=== PATIENT | female | born 1945 | race Caucasian/White ===

== ENCOUNTER → 2016-07-20 | Outpatient (REF) | payer MEDICARE, OTHER | LOC: M LAB REF 16:39 | PROVIDERS: ATTEND Internal Medicine Medical Oncology | DX: C50.911 Malignant neoplasm of unspecified site of right female breast (principal); E07.9 Disorder of thyroid, unspecified ==

== ENCOUNTER 2017-02-06 14:21 | Emergency (ER) | payer MEDICARE, OTHER ==
[~2017-02-06] VITALS: Ht 160 cm; Wt 100.0 kg
[2017-02-06] MEDS ORDERED: SPIR25TA2 (14:31)
[2017-02-06] MEDS ORDERED: ATEN50TA2 (14:31)
[2017-02-06] MEDS ORDERED: XARE20TA (14:31)
[2017-02-06] MEDS ORDERED: VERA24TASA (14:31)
[2017-02-06] MEDS ORDERED: NS 1,000 ML IV ONE (15:45)
[2017-02-06 16:10] LABS: BASO # 0.1 10^3/uL (0.0-0.2); BASO % 0.6 % (0.0-1.0); EOS # 0.1 10^3/uL (0.0-0.50); EOS % 0.5 % (0.0-3.0); IMMATURE GRANULOCYTE % 0.2 % (0-0); LYMPH # 2.8 10^3/uL (1.5-4.5); LYMPH % 26.1 % (24.0-44.0); MEAN CORPUSCULAR HEMOGLOBIN 31.1 pg (27.0-33.0); MEAN CORPUSCULAR HGB CONC 32.4 g/dl (32.0-36.5); MONO # 0.8 10^3/uL (0.0-0.8); MONO % 7.7 % (0.0-5.0); NEUTROPHILS # 7.1 10^3/uL (1.8-7.7); NEUTROPHILS % 64.9 % (36.0-66.0); PLATELET COUNT, AUTOMATED 293 10^3/uL (150-450); RED CELL DISTRIBUTION WIDTH 12.7 % (11.5-14.5); WHITE BLOOD COUNT 10.9 10^3/uL (4.0-10.0)
[2017-02-06 16:19] LABS: INR 2.54
[2017-02-06 16:32] LABS: ALBUMIN 3.3 GM/DL (3.2-5.2); ALBUMIN/GLOBULIN RATIO 0.7 (1.00-1.93); BILIRUBIN,DIRECT 0.1 MG/DL (0.0-0.2); BILIRUBIN,TOTAL 0.5 MG/DL (0.2-1.0); CALCIUM LEVEL 8.9 MG/DL (8.8-10.2); CREATININE FOR GFR 0.99 MG/DL (0.55-1.02); GLOMERULAR FILTRATION RATE 58.9 (>39); POTASSIUM SERUM 3.6 MEQ/L (3.5-5.1)
[2017-02-06] MEDS ORDERED: CIPR-249 PO (17:08)
[2017-02-06] MEDS ORDERED: CIPROFLOXACIN 500 MG TAB PO ONE (17:15)
[2017-02-06 17:19] VITALS: BP 148/67
--- NOTE | 2017-02-08 06:24 | REP ---
CT ABDOMEN AND PELVIS WITHOUT CONTRAST: HISTORY: Bilateral flank pain. COMPARISON: 02/03/2006. Calcifications are present in the gallbladder consistent with cholelithiasis. A 10 mm calcification is present in the right renal pelvis. There is no hydronephrosis. A 1.2 cm mass is present in the left adrenal gland consistent with an adenoma. The liver, pancreas, spleen, right adrenal gland and left kidney are normal in appearance. There is no mass, adenopathy or free fluid. Diverticula are present in the descending colon. A 1.3 cm ventral abdominal hernia containing fat is present. The visualized lungs are clear. CT PELVIS: The urinary bladder and uterus are normal in appearance. Diverticula are present in the descending and sigmoid colon. Degenerative change is present in the spine. IMPRESSION: 1. Cholelithiasis. 2. There is a 10 mm calcification in the right renal pelvis. There is no hydronephrosis. 3. 1.2 cm left adrenal mass consistent with a adenoma. 4. Diverticulosis. 5. 1.3 cm ventral abdominal hernia. Signed by Singh Thorne MD 02/08/2017 10:00 A
== END 2017-02-06 17:31 | disposition home or self-care (01) ==
LOC: M ED 14:21
DX: N10 Acute pyelonephritis (principal); N20.0 Calculus of kidney; I10 Essential (primary) hypertension; Z79.899 Other long term (current) drug therapy; Z91.040 Latex allergy status; Z87.442 Personal history of urinary calculi; Z98.890 Other specified postprocedural states

== ENCOUNTER 2017-06-07 07:55 | Inpatient (IN) | payer MEDICARE, OTHER ==
[2017-06-07] MEDS: LR 1,000 ML IV ×2 (08:00→16:14)
[2017-06-07] MEDS ORDERED: PROPOFOL 200 MG/20 ML VIAL As Ordered ×4 (09:47→12:21)
[2017-06-07] MEDS ORDERED: fentaNYL 100 MCG/2 ML INJECTION (J3010) As Ordered ×3 (10:31→14:52)
[2017-06-07] MEDS ORDERED: MIDAZOLAM INJ 2 MG/2 ML VIAL (J2250) As Ordered (10:39)
[2017-06-07 11:20] LABS: HEMATOCRIT 39.8 % (36.0-47.0); HEMOGLOBIN 13.1 g/dl (12.0-16.0); MEAN CORPUSCULAR HEMOGLOBIN 31.5 pg (27.0-33.0); MEAN CORPUSCULAR HGB CONC 32.9 g/dl (32.0-36.5); MEAN CORPUSCULAR VOLUME 95.7 fl (80.0-96.0); PLATELET COUNT, AUTOMATED 244 10^3/uL (150-450); RED BLOOD COUNT 4.16 10^6/uL (4.00-5.40); RED CELL DISTRIBUTION WIDTH 13.1 % (11.5-14.5); WHITE BLOOD COUNT 8.3 10^3/uL (4.0-10.0)
[2017-06-07] MEDS ORDERED: ePHEDrine SULFATE 25 MG/5 ML(5MG/ML) SYRINGE As Ordered (11:23)
[2017-06-07] MEDS ORDERED: PHENYLephrine HCL 500 MCG/5 ML (100MCG/ML) SYRINGE (J2370) As Ordered (11:23)
[2017-06-07] MEDS: ZOSYN 3.375 GM VIAL (J2543) As Ordered (11:24)
[2017-06-07] MEDS: BUPIVACAINE HCL 0.25% 30 ML VIAL As Ordered (11:40)
[2017-06-07 11:47] LABS: ANION GAP 7 MEQ/L (8-16); BLOOD UREA NITROGEN 12 MG/DL (7-18); CALCIUM LEVEL 8.5 MG/DL (8.8-10.2); CARBON DIOXIDE LEVEL 28 MEQ/L (21-32); CHLORIDE LEVEL 107 MEQ/L (98-107); CREATININE FOR GFR 0.88 MG/DL (0.55-1.30); GLOMERULAR FILTRATION RATE > 60.0 (>39); GLUCOSE, FASTING 93 MG/DL (70-100); POTASSIUM SERUM 4.2 MEQ/L (3.5-5.1); SODIUM LEVEL 142 MEQ/L (136-145)
[2017-06-07] MEDS ORDERED: MORPHINE 10 MG/ML 1ML VIAL (J2270) As Ordered (12:04)
[2017-06-07] MEDS ORDERED: ROCURONIUM BROMIDE 50 MG/5 ML VIAL As Ordered ×2 (12:21→12:43)
[2017-06-07] MEDS ORDERED: LIDOCAINE 2% INJ 100 MG/5 ML SDV (FOR ANES.) As Ordered (12:21)
[2017-06-07] MEDS ORDERED: dexameTHASONE 4 MG/ML 1ML VIAL (J1100) As Ordered (12:21)
[2017-06-07] MEDS ORDERED: ONDANSETRON 4MG/2ML VIAL (J2405) As Ordered ×2 (12:21→14:46)
[2017-06-07] MEDS ORDERED: NEOSTIGMINE 10 MG/10 ML VIAL (J2710) As Ordered (14:48)
[2017-06-07] MEDS ORDERED: GLYCOPYRROLATE INJ 0.2 MG/ML 2 ML VIAL As Ordered ×2 (14:49)
[2017-06-07] MEDS ORDERED: KETOROLAC 30 MG/ML VIAL (J1885) As Ordered (16:00)
[2017-06-07] MEDS ORDERED: HYDROmorphone HCL 1 MG/ML SYRINGE (J1170) As Ordered (16:03)
[2017-06-07] MEDS: KETOROLAC 30 MG/ML VIAL (J1885) IV (16:10)
[2017-06-07] MEDS: HYDROmorphone HCL 1 MG/ML SYRINGE (J1170) IV ×3 (16:13→16:24)
[2017-06-07] MEDS ORDERED: METOCLOPRAMIDE INJ 10MG/2ML VIAL (J2765) IV (16:15)
[2017-06-07] MEDS ORDERED: LR 1,000 ML IV (16:15)
[2017-06-07] MEDS ORDERED: ONDANSETRON 4MG/2ML VIAL (J2405) IV ×2 (16:15)
[2017-06-07] MEDS ORDERED: MORPHINE 4 MG/ML 1ML VIAL (J2270) IV (16:15)
[2017-06-07] MEDS ORDERED: ACETAMINOPHEN TAB 650MG DOSE (2X325MG) PO (16:15)
[2017-06-07] MEDS ORDERED: fentaNYL 100 MCG/2 ML INJECTION (J3010) IV (16:15)
[2017-06-07] MEDS ORDERED: PIPERACILLIN/TAZOBACTAM SOD 3.375 GM in APPROPRIATE DILUENT 1 EA IV (17:00)
[2017-06-07] MEDS: PIPERACILLIN/TAZOBACTAM SOD 3.375 GM in APPROPRIATE DILUENT 1 EA IV ×2 (19:33→23:37)
[2017-06-08] MEDS: PIPERACILLIN/TAZOBACTAM SOD 3.375 GM in APPROPRIATE DILUENT 1 EA IV ×4 (05:15→23:44)
[2017-06-08] MEDS: LR 1,000 ML IV ×4 (05:16→19:40)
[2017-06-08] MEDS: KETOROLAC 30 MG/ML VIAL (J1885) IV ×3 (05:52→20:01)
[2017-06-08 06:36] LABS: BASO % 0.1 % (0.0-1.0); HEMATOCRIT 35.3 % (36.0-47.0); HEMOGLOBIN 11.6 g/dl (12.0-16.0); IMMATURE GRANULOCYTE % 0.5 % (0-3.0); LYMPH # 1.1 10^3/uL (1.5-4.5); LYMPH % 5.3 % (24.0-44.0); MEAN CORPUSCULAR HEMOGLOBIN 31.2 pg (27.0-33.0); MEAN CORPUSCULAR HGB CONC 32.9 g/dl (32.0-36.5); MEAN CORPUSCULAR VOLUME 94.9 fl (80.0-96.0); MONO # 1.3 10^3/uL (0.0-0.8); MONO % 6.6 % (0.0-5.0); NEUTROPHILS # 17.5 10^3/uL (1.8-7.7); NEUTROPHILS % 87.5 % (36.0-66.0); PLATELET COUNT, AUTOMATED 222 10^3/uL (150-450); RED BLOOD COUNT 3.72 10^6/uL (4.00-5.40); RED CELL DISTRIBUTION WIDTH 13.2 % (11.5-14.5)
[2017-06-08 07:03] LABS: ALBUMIN 2.4 GM/DL (3.2-5.2); ALBUMIN/GLOBULIN RATIO 0.62 (1.00-1.93); ALKALINE PHOSPHATASE 53 U/L (45-117); ALT/SGPT 10 U/L (12-78); ANION GAP 6 MEQ/L (8-16); AST/SGOT 15 U/L (7-37); BILIRUBIN,TOTAL 0.8 MG/DL (0.2-1.0); BLOOD UREA NITROGEN 17 MG/DL (7-18); CALCIUM LEVEL 8.1 MG/DL (8.8-10.2); CARBON DIOXIDE LEVEL 28 MEQ/L (21-32); CHLORIDE LEVEL 107 MEQ/L (98-107); CREATININE FOR GFR 1.16 MG/DL (0.55-1.30); GLUCOSE, FASTING 143 MG/DL (70-100); POTASSIUM SERUM 4.1 MEQ/L (3.5-5.1); SODIUM LEVEL 141 MEQ/L (136-145); TOTAL PROTEIN 6.3 GM/DL (6.4-8.2)
[2017-06-08] MEDS: ATENOLOL 50 MG TAB PO (09:07)
[2017-06-08] MEDS: SPIRONOLACTONE 25 MG TAB PO (09:07)
[2017-06-08] MEDS: VERAPAMIL 120 MG SR TAB PO (09:07)
[2017-06-08] MEDS: ALVIMOPAN 12 MG CAPSULE (ENTEREG) PO ×2 (11:21→20:00)
[2017-06-08] MEDS: SPIRONOLACTONE 12.5MG PER 1/2 TABLET PO (11:21)
[2017-06-08] MEDS: RIVAROXABAN 20 MG TAB (XARELTO) PO (21:35)
[2017-06-08] MEDS: CALCIUM CARBONATE 500 MG CHEW U/D PO (21:35)
[2017-06-09] MEDS: LR 1,000 ML IV (05:14)
[2017-06-09] MEDS: PIPERACILLIN/TAZOBACTAM SOD 3.375 GM in APPROPRIATE DILUENT 1 EA IV ×4 (05:14→23:35)
[2017-06-09 06:31] LABS: BASO % 0.2 % (0.0-1.0); EOS % 0.3 % (0.0-3.0); HEMATOCRIT 31.2 % (36.0-47.0); HEMOGLOBIN 10.3 g/dl (12.0-16.0); IMMATURE GRANULOCYTE % 0.5 % (0-3.0); LYMPH # 1.2 10^3/uL (1.5-4.5); LYMPH % 7.7 % (24.0-44.0); MEAN CORPUSCULAR HEMOGLOBIN 31.1 pg (27.0-33.0); MEAN CORPUSCULAR VOLUME 94.3 fl (80.0-96.0); MONO # 0.8 10^3/uL (0.0-0.8); MONO % 5.2 % (0.0-5.0); NEUTROPHILS # 12.8 10^3/uL (1.8-7.7); NEUTROPHILS % 86.1 % (36.0-66.0); PLATELET COUNT, AUTOMATED 183 10^3/uL (150-450); RED BLOOD COUNT 3.31 10^6/uL (4.00-5.40); WHITE BLOOD COUNT 14.9 10^3/uL (4.0-10.0)
[2017-06-09 06:49] LABS: ANION GAP 7 MEQ/L (8-16); BLOOD UREA NITROGEN 14 MG/DL (7-18); CALCIUM LEVEL 8.3 MG/DL (8.8-10.2); CARBON DIOXIDE LEVEL 27 MEQ/L (21-32); CHLORIDE LEVEL 108 MEQ/L (98-107); CREATININE FOR GFR 0.96 MG/DL (0.55-1.30); GLOMERULAR FILTRATION RATE > 60.0 (>39); GLUCOSE, FASTING 94 MG/DL (70-100); POTASSIUM SERUM 3.7 MEQ/L (3.5-5.1); SODIUM LEVEL 142 MEQ/L (136-145)
[2017-06-09] MEDS: SPIRONOLACTONE 12.5MG PER 1/2 TABLET PO (09:00)
[2017-06-09] MEDS: ATENOLOL 50 MG TAB PO (09:00)
[2017-06-09] MEDS: VERAPAMIL 120 MG SR TAB PO (09:00)
[2017-06-09] MEDS: ALVIMOPAN 12 MG CAPSULE (ENTEREG) PO ×2 (09:00→20:52)
[2017-06-09] MEDS: DOCUSATE SODIUM 100 MG CAP PO ×2 (12:10→20:51)
[2017-06-09] MEDS: RIVAROXABAN 20 MG TAB (XARELTO) PO (18:09)
[2017-06-10] MEDS: PIPERACILLIN/TAZOBACTAM SOD 3.375 GM in APPROPRIATE DILUENT 1 EA IV ×4 (05:27→23:09)
[2017-06-10] MEDS: DOCUSATE SODIUM 100 MG CAP PO ×2 (09:00→21:00)
[2017-06-10] MEDS: ATENOLOL 50 MG TAB PO (10:23)
[2017-06-10] MEDS: SPIRONOLACTONE 12.5MG PER 1/2 TABLET PO (10:24)
[2017-06-10] MEDS: VERAPAMIL 120 MG SR TAB PO (10:24)
[2017-06-10] MEDS: ALVIMOPAN 12 MG CAPSULE (ENTEREG) PO ×2 (10:24→21:39)
[2017-06-10] MEDS: NORCO, ANEXSIA 5/325MG TABLET (HYDROcodone/ACETAMINOPHEN) PO ×2 (11:41→18:24)
[2017-06-10] MEDS: RIVAROXABAN 20 MG TAB (XARELTO) PO (18:22)
[2017-06-11] MEDS: PIPERACILLIN/TAZOBACTAM SOD 3.375 GM in APPROPRIATE DILUENT 1 EA IV (05:27)
[2017-06-11 05:40] LABS: BASO % 0.4 % (0.0-1.0); EOS # 0.2 10^3/uL (0.0-0.50); HEMOGLOBIN 10.6 g/dl (12.0-16.0); IMMATURE GRANULOCYTE % 0.3 % (0-3.0); LYMPH # 1.2 10^3/uL (1.5-4.5); LYMPH % 13.6 % (24.0-44.0); MEAN CORPUSCULAR HEMOGLOBIN 31.3 pg (27.0-33.0); MEAN CORPUSCULAR HGB CONC 33.1 g/dl (32.0-36.5); MEAN CORPUSCULAR VOLUME 94.4 fl (80.0-96.0); MONO # 0.7 10^3/uL (0.0-0.8); MONO % 7.3 % (0.0-5.0); NEUTROPHILS # 6.9 10^3/uL (1.8-7.7); NEUTROPHILS % 76.4 % (36.0-66.0); PLATELET COUNT, AUTOMATED 231 10^3/uL (150-450); RED BLOOD COUNT 3.39 10^6/uL (4.00-5.40); RED CELL DISTRIBUTION WIDTH 12.8 % (11.5-14.5); WHITE BLOOD COUNT 9.1 10^3/uL (4.0-10.0)
[2017-06-11] MEDS: ALVIMOPAN 12 MG CAPSULE (ENTEREG) PO (08:36)
[2017-06-11] MEDS: ATENOLOL 50 MG TAB PO (08:36)
[2017-06-11] MEDS: VERAPAMIL 120 MG SR TAB PO (08:36)
[2017-06-11] MEDS: DOCUSATE SODIUM 100 MG CAP PO (08:36)
[2017-06-11] MEDS: SPIRONOLACTONE 12.5MG PER 1/2 TABLET PO (08:36)
[2017-06-11] MEDS ORDERED: AUGMENTIN 500 MG TAB PO (21:00)
== END 2017-06-11 12:37 | disposition home or self-care (01) | DRG 909 ==
LOC: M OPP 07:55 → M SDC 06-08 15:56 → M MSPAV 06-08 16:02
PROC: 0DBN0ZZ Excision of Sigmoid Colon, Open Approach (ICD-10-PCS; principal; 2017-06-07 09:05)
DX: K91.71 Accidental puncture and laceration of a digestive system organ or structure during a digestive system procedure (principal); I10 Essential (primary) hypertension; I48.91 Unspecified atrial fibrillation; G47.33 Obstructive sleep apnea (adult) (pediatric); E66.01 Morbid (severe) obesity due to excess calories; D12.2 Benign neoplasm of ascending colon; K57.30 Diverticulosis of large intestine without perforation or abscess without bleeding; Z92.21 Personal history of antineoplastic chemotherapy; Z90.12 Acquired absence of left breast and nipple; Z85.3 Personal history of malignant neoplasm of breast; Z79.01 Long term (current) use of anticoagulants; Z79.899 Other long term (current) drug therapy; Z68.37 Body mass index [BMI] 37.0-37.9, adult